=== PATIENT | female | born 1955 | race Caucasian/White ===

== ENCOUNTER 2017-02-12 00:22 | Emergency (ER) | payer OTHER ==
[~2017-02-12] VITALS: Ht 157.5 cm; Wt 86.3 kg
[~2017-02-12 00:22] MED LIST: FLUTICASONE PRO16 GM BOTH NARES; METOPROLOL TART25 MG PO; MUCINEX ALLERG180 MG PO; PREDNISONE20 MG PO; PROAIR HFA8.5 GM IH; SIMVASTATIN20 MG PO; TESSALON200 MG PO; VENTOLIN HFA18 GM IH; ZITHROMAX Z-PA250 MG PO; ZYRTEC5 MG PO
[2017-02-12 00:51] LABS: HEMATOCRIT 42.1 % (36.0-46.0); MCH 29.8 PG (29.0-34.0); MCHC 33.3 G/DL (30.0-36.0); MCV 89.6 FL (83-99); MEAN PLAT.VOLUME 9.9 uM^3 (9.5-12.4); PLATELET COUNT 233 K/uL (156-360); RBC DIS.WIDTH-CV 12.2 % (11.8-14.6); RBC DIS.WIDTH-SD 40.1 % (39-53); WHITE BLOOD COUNT 6.7 K/uL (4.1-10.2)
[2017-02-12 00:58] LABS: CHLORIDE 109 mEq/L (99-109); POTASSIUM 4.1 mEq/L (3.7-5.4); SODIUM 140 mEq/L (136-147)
[2017-02-12 01:00] LABS: GLUCOSE 115 mg/dL (70-99)
[2017-02-12 01:02] LABS: ANION GAP 9 MEQ/L (2-14)
[2017-02-12 01:04] LABS: GFR ESTIMATE (CALCULATED) > 59 mL/min/
[2017-02-12 01:05] LABS: UREA NITROGEN (BUN) 17 mg/dL (9-23)
[2017-02-12] MEDS ORDERED: DOXYCYCLINE HY100 MG PO (02:17)
[2017-02-12] MEDS ORDERED: ROBITUSSIN AC,T10 ML PO (02:17)
[2017-02-12] MEDS ORDERED: PREDNISONE20 MG PO (02:17)
[2017-02-12] MEDS ORDERED: FLONASE16 G1 BOTH NARES (02:18)
[2017-02-12 02:45] VITALS: BP 134/89
== END 2017-02-12 02:49 | disposition home or self-care (01) ==
LOC: EME 00:22
DX: J45.909 Unspecified asthma, uncomplicated (principal); Z85.42 Personal history of malignant neoplasm of other parts of uterus; Z90.710 Acquired absence of both cervix and uterus; Z95.1 Presence of aortocoronary bypass graft; Z88.0 Allergy status to penicillin
CPT/HCPCS: 71020; 80048; 85027; 93005; 94640; 99281; 99284; J7512